=== PATIENT | male | born 2000 | race Caucasian/White ===

== ENCOUNTER 2024-01-14 22:36 | Inpatient (IN) | payer MEDICAID, SELFPAY ==
[~2024-01-14] VITALS: Ht 167.6 cm; Wt 59.9 kg
[2024-01-14 23:57] LABS: HEMATOCRIT 42.4 % (42.0-52.0); HEMOGLOBIN 14.6 g/dl (13.5-17.5); MEAN CORPUSCULAR HEMOGLOBIN 33.2 pg (27.0-33.0); MEAN CORPUSCULAR HGB CONC 34.4 g/dl (32.0-36.5); MEAN CORPUSCULAR VOLUME 96.4 fl (80.0-96.0); PLATELET COUNT, AUTOMATED 274 10^3/uL (150-450); WHITE BLOOD COUNT 14.6 10^3/uL (4.0-10.0)
[2024-01-15] MEDS: BOOSTRIX VACCINE (TETANUS/DIPHTH/ACEL. PERTUSSIS) 0.5ML SYR IM ONE (00:06)
[2024-01-15 00:20] LABS: AMPHETAMINES LEVEL URINE NEGATIVE (NEGATIVE); BENZODIAZEPINES URINE NEGATIVE (NEGATIVE); COCAINE METABOLITE URINE NEGATIVE (NEGATIVE); METHADONE URINE NEGATIVE (NEGATIVE); OPIATES URINE NEGATIVE (NEGATIVE); PHENCYCLIDINE URINE NEGATIVE (NEGATIVE)
[2024-01-15 00:22] LABS: ETHYL ALCOHOL (ETHANOL) < 0.003 % (0.000-0.010)
[2024-01-15 00:24] LABS: ALBUMIN 4.5 G/DL (3.2-5.2); ALKALINE PHOSPHATASE 101 U/L (46-116); ALT/SGPT 15 U/L (7.0-40); AST/SGOT 14 U/L (<34); BILIRUBIN,DIRECT 0.3 MG/DL (<0.4); BILIRUBIN,TOTAL 0.7 MG/DL (0.3-1.2); BLOOD UREA NITROGEN 9 MG/DL (9-23); CALCIUM LEVEL 10.1 MG/DL (8.5-10.1); CARBON DIOXIDE LEVEL 30 MMOL/L (20-31); CHLORIDE LEVEL 108 MMOL/L (98-107); CREATININE FOR GFR 0.92 MG/DL (0.70-1.30); GLOMERULAR FILTRATION RATE > 60.0 (>60); GLUCOSE, FASTING 93 MG/DL (60-100); SALICYLATE LEVEL < 3.0 MG/DL (<30); SODIUM LEVEL 143 MMOL/L (136-145); TOTAL PROTEIN 7.4 G/DL (5.7-8.2)
[2024-01-15 00:26] LABS: THYROID STIMULATING HORMONE 2.783 uIU/ML (0.55-4.78)
[2024-01-15 00:46] LABS: BARBITURATES URINE NEGATIVE (NEGATIVE)
[2024-01-15 00:47] LABS: CANNABINOIDS URINE POSITIVE (NEGATIVE)
[2024-01-15] MEDS ORDERED: ACETAMINOPHEN TAB 650MG DOSE (2X325MG) PO PRN (02:10)
[2024-01-15] MEDS ORDERED: IBUPROFEN 400MG TAB PO PRN (02:10)
[2024-01-15] MEDS ORDERED: MOM 30ML SUSPENSION UDC PO PRN (02:10)
[2024-01-15 03:00] VITALS: BP 130/76; TEMP 96.8; O2SAT 98
[2024-01-15] MEDS ORDERED: HOME MED LIST COMPLETE! XX SCH (10:20)
[2024-01-15] MEDS: VENLAFAXINE **XR** 37.5 MG CAPSULE PO SCH (11:58)
[2024-01-15] MEDS: NICOTINE 14 MG/24 HR TRANSDERMAL TD SCH (12:06)
[2024-01-15 18:26] VITALS: BP 124/72; TEMP 97.7
[2024-01-15] MEDS: DICLOFENAC EPOLAMINE 1.3% PATCH TOP SCH (20:44)
[2024-01-15] MEDS: traZODone 50 MG TAB PO PRN (22:33)
[2024-01-15] MEDS: diphenhydrAMINE 25MG CAP PO PRN (23:11)
[2024-01-16 06:51] VITALS: BP 106/73; TEMP 97; O2SAT 100
[2024-01-16 17:23] VITALS: BP 132/92; TEMP 97.5; O2SAT 100
[2024-01-17 07:09] VITALS: BP 111/66; TEMP 97.6; O2SAT 98
[2024-01-17] MEDS: VENLAFAXINE **XR** 37.5 MG CAPSULE PO ONE (10:01)
[2024-01-17 15:47] VITALS: BP 125/78; TEMP 98.1; O2SAT 100
[2024-01-17] MEDS: traZODone 100 MG TAB PO PRN (20:40)
[2024-01-18 06:41] VITALS: BP 120/60; TEMP 97.7; O2SAT 96
[2024-01-18] MEDS: VENLAFAXINE **XR** 75MG CAPSULE PO SCH (09:21)
[2024-01-18 16:17] VITALS: BP 141/87; TEMP 98; O2SAT 97
[2024-01-19 06:21] VITALS: BP 107/58; TEMP 97.4; O2SAT 98
[2024-01-19 16:31] VITALS: BP 130/79; TEMP 98.5; O2SAT 100
[2024-01-20 06:39] VITALS: BP 120/60; TEMP 97; O2SAT 100
[2024-01-20] MEDS ORDERED: traZODone 25MG PER 1/2 TABLET PO PRN (09:15)
[2024-01-20] MEDS ORDERED: NICO21PAT TD (10:52)
[2024-01-20] MEDS ORDERED: DICL1PAT6 TOP (10:52)
[2024-01-20] MEDS ORDERED: VENL75CA47 PO (10:52)
[2024-01-20] MEDS ORDERED: TRAZ-252 PO (10:52)
[2024-01-20] MEDS ORDERED: ARIPiprazole 2 MG TAB PO SCH (21:00)
[2024-01-21] MEDS ORDERED: NICOTINE 21MG/24HR 1 EA TRANSDERMAL TD SCH (09:00)
== END 2024-01-20 12:54 | disposition home or self-care (01) | DRG 754 ==
LOC: M ED 22:36 → M ED INP 01-15 02:09 → M PSY 01-15 02:40
PROVIDERS: ADMIT Student in an Organized Health Care Education/Training Program; ATTEND Student in an Organized Health Care Education/Training Program
DX: F32.A Depression, unspecified (principal); F15.90 Other stimulant use, unspecified, uncomplicated; Z63.0 Problems in relationship with spouse or partner; F60.89 Other specific personality disorders; M54.2 Cervicalgia; F63.81 Intermittent explosive disorder; R45.851 Suicidal ideations; Z91.51 Personal history of suicidal behavior; F17.200 Nicotine dependence, unspecified, uncomplicated; Z90.49 Acquired absence of other specified parts of digestive tract

== ENCOUNTER 2024-08-15 22:55 | Inpatient (IN) | payer MEDICAID, OTHER ==
[~2024-08-15] VITALS: Ht 167.6 cm; Wt 63.6 kg
[~2024-08-15 22:55] MED LIST: DICL1PAT6 TOP; NICO21PAT TD; TRAZ-252 PO; VENL75CA47 PO
[2024-08-16] MEDS: ACETAMINOPHEN 325 MG TAB PO ONE (00:44)
[2024-08-16 00:46] LABS: HEMATOCRIT 44.6 % (42.0-52.0); HEMOGLOBIN 15.6 g/dl (13.5-17.5); MEAN CORPUSCULAR HEMOGLOBIN 33.6 pg (27.0-33.0); MEAN CORPUSCULAR VOLUME 96.1 fl (80.0-96.0); PLATELET COUNT, AUTOMATED 281 10^3/uL (150-450); RED BLOOD COUNT 4.64 10^6/uL (4.30-6.10); WHITE BLOOD COUNT 11.5 10^3/uL (4.0-10.0)
[2024-08-16] MEDS ORDERED: ACET500P3 PO (00:55)
[2024-08-16 00:56] LABS: AMPHETAMINES LEVEL URINE NEGATIVE (NEGATIVE); BARBITURATES URINE NEGATIVE (NEGATIVE); BENZODIAZEPINES URINE NEGATIVE (NEGATIVE); COCAINE METABOLITE URINE NEGATIVE (NEGATIVE); METHADONE URINE NEGATIVE (NEGATIVE); OPIATES URINE NEGATIVE (NEGATIVE)
[2024-08-16] MEDS ORDERED: ACET500T15 PO (00:56)
[2024-08-16 00:57] LABS: PHENCYCLIDINE URINE NEGATIVE (NEGATIVE)
[2024-08-16 00:58] LABS: CANNABINOIDS URINE POSITIVE (NEGATIVE); ETHYL ALCOHOL (ETHANOL) < 0.003 % (0.000-0.010)
[2024-08-16 01:00] LABS: ALBUMIN 4.4 G/DL (3.2-5.2); ALKALINE PHOSPHATASE 102 U/L (40-129); ALT/SGPT 11 U/L (7.0-40); AST/SGOT 11 U/L (<34); BILIRUBIN,DIRECT 0.2 MG/DL (<0.4); BILIRUBIN,TOTAL 0.5 MG/DL (0.3-1.2); BLOOD UREA NITROGEN 17 MG/DL (9-23); CALCIUM LEVEL 10.8 MG/DL (8.5-10.1); CARBON DIOXIDE LEVEL 28 MMOL/L (20-31); CHLORIDE LEVEL 105 MMOL/L (98-107); CREATININE FOR GFR 0.98 MG/DL (0.70-1.30); GLOMERULAR FILTRATION RATE > 60.0 (>60); GLUCOSE, FASTING 94 MG/DL (60-100); POTASSIUM SERUM 4.5 MMOL/L (3.5-5.1); SALICYLATE LEVEL < 3.0 MG/DL (<30); SODIUM LEVEL 140 MMOL/L (136-145); TOTAL PROTEIN 7.8 G/DL (5.7-8.2)
[2024-08-16] MEDS ORDERED: HOME MED LIST COMPLETE! XX SCH (01:00)
[2024-08-16 01:02] LABS: THYROID STIMULATING HORMONE 3.465 uIU/ML (0.55-4.78)
[2024-08-16] MEDS ORDERED: MOM 30ML SUSPENSION UDC PO PRN (03:35)
[2024-08-16] MEDS ORDERED: MAALOX 30 ML SUSP *UDC PO PRN (03:35)
[2024-08-16 06:03] VITALS: BP 131/74; TEMP 97.7; O2SAT 99
[2024-08-16] MEDS: IBUPROFEN 400MG TAB PO PRN (13:04)
[2024-08-16 14:38] VITALS: BP 138/88; TEMP 98.8; O2SAT 98
[2024-08-16] MEDS: diphenhydrAMINE 25MG CAP PO PRN (20:21)
[2024-08-17 06:20] VITALS: BP 119/67; TEMP 97.3; O2SAT 100
[2024-08-17] MEDS: VENLAFAXINE 37.5 MG TAB PO SCH (09:17)
[2024-08-17] MEDS: FLUZONE VACCINE TRIVALENT PF(2024-25) 0.5ML SYRINGE IM.IMMUN ONE (09:33)
[2024-08-17 15:19] VITALS: BP 129/89; TEMP 98.8; O2SAT 98
[2024-08-18 06:40] VITALS: BP 132/79; TEMP 97.2; O2SAT 100
[2024-08-18 14:52] VITALS: BP 127/65; TEMP 98.6; O2SAT 100
[2024-08-18] MEDS: ACETAMINOPHEN 325 MG TAB PO PRN (18:46)
[2024-08-18] MEDS: traZODone 50 MG TAB PO PRN (22:55)
[2024-08-19 06:15] VITALS: BP 139/81; TEMP 98.2; O2SAT 97
[2024-08-19] MEDS: VENLAFAXINE 37.5 MG TAB PO SCH (08:51)
[2024-08-19 16:32] VITALS: BP 138/90; TEMP 96.7; O2SAT 96
[2024-08-20 06:44] VITALS: BP 135/68; TEMP 98.1; O2SAT 100
[2024-08-20 16:42] VITALS: BP 128/88; TEMP 97.8; O2SAT 97
[2024-08-21 07:01] VITALS: BP 149/86; TEMP 98; O2SAT 98
[2024-08-21] MEDS ORDERED: VENL37TA PO (09:17)
== END 2024-08-21 12:17 | disposition home or self-care (01) | DRG 754 ==
LOC: M ED 22:55 → M ED INP 08-16 03:31 → M PSY 08-16 05:09
PROVIDERS: ADMIT Psychiatry & Neurology Psychiatry; ATTEND Psychiatry & Neurology Psychiatry
DX: F32.A Depression, unspecified (principal); R45.851 Suicidal ideations; E83.52 Hypercalcemia; F17.200 Nicotine dependence, unspecified, uncomplicated; Z63.0 Problems in relationship with spouse or partner; Z91.51 Personal history of suicidal behavior; Z56.0 Unemployment, unspecified